=== PATIENT | male | born 1980 ===

== ENCOUNTER 2017-02-27 17:07 | Emergency (ER) | payer SELFPAY ==
[2017-02-27 17:18] VITALS: BP 129/88; PULSE 93; RESP 18; TEMP 98.1; O2SAT 98
--- NOTE | 2017-02-27 17:42 | ED PDOC ---
Arrival/HPI - General Chief Complaint: Back Pain Time Seen by Provider: 02/27/17 17:09 Historian: Patient - History of Present Illness Narrative History of Present Illness (Text): 02/27/17 17:39 36yr old male presents today with 1 week history of pain to the left side of his neck. pt states he has an achy pain 6 out of 10 that runs for the left side of the posterior scalp to the left side of the neck/upper back. pt states it feels like a pulled muscle. 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 he denies any recent trauma or injury. pt states he went to sleep one week ago and woke up with the pain in the neck. pt denies a headache. Pt states he only has pain if he touches the posterior aspect of the scalp and neck and if h turns his head to the left. He denies dizziness or weakness. no cp or sob. denies abdominal pain. no n/v/d. pt states he has been occasionally taking motrin for pain at home without improvement. pt denies numbness, weakness, tingling in the extremities. no other complaints. Time/Duration: 1 week Symptom Course: Unchanged Quality: Aching, Tightness Severity Level: 6 Past Medical History - Provider Review Nursing Documentation Reviewed: Yes - Travel History Have you recently traveled outside [place] w/in the past 3 mons?: No - Infectious Disease Hx of Infectious Diseases: None - Tetanus Immunization Tetanus Immunization: Unknown - Psychiatric Hx Substance Use: No - Surgical History Hx Orthopedic Surgery: Yes (Left ankle) Family/Social History - Physician Review Nursing Documentation Reviewed: Yes Family/Social History: Unknown Family HX Smoking Status: Light Smoker < 10 Cigarettes Daily Hx Alcohol Use: Yes Frequency of alcohol use: Few days per week Hx Substance Use: No Allergies/Home Meds Allergies/Adverse Reactions: Allergies No Known Allergies Allergy (Verified 02/27/17 17:17) Review of Systems - Review of Systems Constitutional: absent: Fatigue, Fevers Respiratory: absent: SOB, Cough Cardiovascular: absent: Chest Pain, Palpitations, Syncope Gastrointestinal: absent: Abdominal Pain, Nausea, Vomiting Genitourinary Male: absent: Dysuria, Frequency, Hematuria Musculoskeletal: Neck Pain Skin: absent: Rash, Pruritis Neurological: absent: Headache, Dizziness Psychiatric: absent: Anxiety, Depression Physical Exam Vital Signs Reviewed: Yes Vital Signs Temp Pulse Resp BP Pulse Ox 02/27/17 17:17 98.1 F 93 H 18 129/88 98 Temperature: Afebrile Blood Pressure: Normal Pulse: Regular Respiratory Rate: Normal Appearance: Positive for: Well-Appearing, Non-Toxic, Comfortable Pain Distress: None Mental Status: Positive for: Alert and Oriented X 3 - Systems Exam Head: Present: Atraumatic, Tenderness (+ ttp over the left side over the posterior scalp along the trapezius. no edema, no erythema; no ecchymosis. ) Ears: Present: Other (no mastoid tenderness) Mouth: Present: Moist Mucous Membranes Pharnyx: Present: Normal Nose (Internal): Present: Normal Inspection Neck: Present: Normal Range of Motion, Paraspinal Tenderness (+ ttp over left side of trapezius, ), Trachea Midline. No: MIDLINE TENDERNESS Respiratory/Chest: Present: Clear to Auscultation, Good Air Exchange. No: Respiratory Distress, Accessory Muscle Use, Tender to Palpation Cardiovascular: Present: Regular Rate and Rhythm Abdomen: No: Tenderness Back: Present: Normal Inspection. No: Midline Tenderness, Paraspinal Tenderness Upper Extremity: Present: Normal Inspection, Normal ROM, NORMAL PULSES, Neurovascularly Intact, Capillary Refill < 2s. No: Tenderness, Swelling, Erythema, Deformity Neurological: Present: GCS=15, Speech Normal Skin: Present: Warm, Dry, Normal Color. No: Rashes Psychiatric: Present: Alert, Oriented x 3 Medical Decision Making ED Course and Treatment: 02/27/17 19:11 Patient nontoxic well-appearing in no distress with stable vital signs. Toradol, Flexeril Patient reassessment: Feeling better with medications ambulating with a steady gait. Muscle strength 5 out of 5 bilaterally. I advised to followup with the orthopedist within the next 2 days. Return if symptoms worsen persist or new symptoms develop. Patient verbalizes understanding of discharge instructions and need for immediate followup. all aspects of this case were discussed the attending of record. Impression: neck pain Motrin every 6 hours as needed for pain Flexeril one tablet every 8 hours as needed for muscle spasms: May cause drowsiness Followup with the orthopedist within the next 2 days Followup with primary care physician within the next 2 days Return if symptoms worsen persist or if new symptoms develop - Medication Orders Current Medication Orders: Discontinued Medications Cyclobenzaprine HCl (Flexeril) 10 mg PO STAT STA Stop: 02/27/17 17:27 Last Admin: 02/27/17 18:07 Dose: 10 mg Ketorolac Tromethamine (Toradol) 60 mg IM STAT STA Stop: 02/27/17 17:27 Last Admin: 02/27/17 18:07 Dose: 60 mg MAR Pain Assessment Document 02/27/17 18:07 (Rec: 02/27/17 18:07 [id number]) Pain Reassessment Is this a pain reassessment? Yes Sleep Is patient sleeping during reassessment? No Presence of Pain Presence of Pain Yes Pain Scale Used Pain Scale Used Numeric Location Left, Right or Bilateral Left Description Description Constant IM Administration Charges Document 02/27/17 18:07 SF (Rec: 02/27/17 18:07 [id number]) Injection Site MAR Injection Site Left Deltoid Charges for Administration # of IM Administrations 1 Disposition/Present on Arrival - Present on Arrival Any Indicators Present on Arrival: No History of DVT/PE: No History of Uncontrolled Diabetes: No Urinary Catheter: No History of Decub. Ulcer: No History Surgical Site Infection Following: None - Disposition Have Diagnosis and Disposition been Completed?: Yes Diagnosis: Neck pain Disposition: HOME/ ROUTINE Disposition Time: 19:18 Patient Plan: Discharge Patient Problems: Current Active Problems Problem Status Onset Neck pain Acute Condition: GOOD Discharge Instructions (ExitCare): Cervical Sprain (ED) Additional Instructions: Motrin every 6 hours as needed for pain Flexeril one tablet every 8 hours as needed for muscle spasms: May cause drowsiness Followup with the orthopedist within the next 2 days Followup with primary care physician within the next 2 days Return if symptoms worsen persist or if new symptoms develop Prescriptions: Cyclobenzaprine [Cyclobenzaprine HCl] 10 mg PO Q8 #10 tab Ibuprofen [Motrin] 600 mg PO Q6H PRN #20 tab PRN Reason: pain/fever reduction Referrals: Josue Andrews MD [Staff Provider] - Follow up with primary Destinee Griffin MD [Staff Provider] - Follow up with primary Forms: [email or web address] [facility] (Burkinan), WORK NOTE
== END 2017-02-27 19:43 | disposition home or self-care (01) ==
LOC: ED 17:07
DX: M54.2 Cervicalgia (principal)
CPT/HCPCS: 96372; 99283; J1885